=== PATIENT | male | born 2000 | race Hispanic/Latino ===

== ENCOUNTER 2022-03-21 08:16 | Emergency (ER) | payer MEDICAID, OTHER, SELFPAY ==
[2022-03-21 09:32] LABS: Bilirubin Negative (Negative); Blood, Urine Moderate (Negative); Clarity Clear (Clear); Glucose, Urine (Dipstick) Negative (Negative); Ketone, Urine 40 mg/dL (Negative); Leukocyte Small (Negative); Nitrite Negative (Negative); Protein, Urine (Dipstick) Negative (Neg-Trace); Urobilinogen 0.2 mg/dL (Less than 2)
[2022-03-21 09:52] LABS: Bacteria/HPF Rare-Few HPF (None Seen)
[2022-03-21 09:53] LABS: RBC/HPF 0-3 HPF (0-3)
[2022-03-21 09:54] LABS: Squamous Epithelial 0-3 HPF (0-3)
[2022-03-21] MEDS ORDERED: Azithromycin 250 MG TAB ONE (09:55)
[2022-03-21] MEDS ORDERED: Erythromycin Base 0.5% Oint 1 GM TUBE ONE (09:55)
[2022-03-21] MEDS ORDERED: Sterile Water 10 ML ONE (09:55)
[2022-03-21] MEDS ORDERED: cefTRIAXone\\ROCEPHIN 500 MG VIAL ONE (09:56)
[2022-03-21 21:29] LABS: Chlam.trachomatis by PCR,Urine Not Detected (NotDetected)
== END 2022-03-21 10:35 | disposition home or self-care (01) ==
LOC: NAV ERS 08:16
DX: H10.33 Unspecified acute conjunctivitis, bilateral (principal); R30.0 Dysuria; F17.290 Nicotine dependence, other tobacco product, uncomplicated
CPT/HCPCS: 81003; 81015; 87086; 87491; 87591; 96372; 99283; J0696